=== PATIENT | female | born 1940 | race Caucasian/White ===

== ENCOUNTER 2017-04-17 13:01 | Observation (INO) | payer MEDICARE, OTHER ==
[~2017-04-17] VITALS: Ht 160 cm; Wt 88.5 kg
[2017-04-17] VITALS (12 sets, daily range): BP systolic 131–171; BP diastolic 57–82; PULSE 78–93; RESP 16–22; TEMP 98.2–100; O2SAT 94–98
[~2017-04-17 13:01] MED LIST: CELE200 PO; METO5TAB PO; NEXI40CA PO; OXYC30TA PO; SUCR1TAB PO; SYNT175T PO
[2017-04-17] MEDS ORDERED: OXYC30TA PO (13:12)
[2017-04-17] MEDS ORDERED: SYNT175T PO (13:12)
[2017-04-17] MEDS ORDERED: OMEP20TA PO (13:12)
[2017-04-17] MEDS ORDERED: ASPIRIN 81 MG CHEW TAB PO STA (13:34)
[2017-04-17] MEDS ORDERED: SODIUM CHLOR 0.9% 1000 ML INJ 1,000 ML IV ONE (13:34)
--- NOTE | 2017-04-17 13:41 | PD ---
HPI Chief Complaint: Chest Pain Time Seen by Provider: 13:11 Travel History International Travel<30 days: No Contact w/Intl Traveler<30days: No Traveled to known affect area: No History of Present Illness HPI The patient was seen and examined in the presence of the nurse. This patient complains of chest pain. Duration 12 hours. Feels like a sternal pressure in the center and low sternum. Severity is moderate. It's waxed and waned over the last 12 hours. She denies history of personal cardiac disease. She says she had a catheterization in [place] 3 years ago but required no intervention or stenting. PFSH Past Medical History Cancer: No Diabetes: Yes (DIET CONTROLLED) Patient Takes Glucophage: No Diminished Hearing: No Hepatitis: No Hiatal Hernia: Yes (GERD) Medical other: Yes (ARTHRITIS/ THYROID PROBLEMS) Musculoskeletal: Yes (BACK PAIN HX) Thyroid Disease: Yes Tetanus Vaccination: > 5 Years Influenza Vaccination: Yes ?: Not Menopausal: Yes Past Surgical History Abdominal Surgery: Yes (5 SX FOR HIATAL HERNIA; SPLEENECTOMY) Eye Surgery: Yes (LEFT CATARACT SX) Gynecologic Surgery: Yes (HYSTERECTOMY WITH BLADDER SUSPENSION ; REVISION BLADDER ) Hysterectomy: Yes Neurologic Surgery: Yes (1967 L4-5 LAMINECTOMY; 2007 LUMBAR LAMINECTOMT ) Pacemaker: No Other Surgery: Yes Social History Alcohol Use: Yes (OCASSIONALLY) Tobacco Use: No Substance Use: No (PT DENIES) Allergies-Medications (Allergen,Severity, Reaction): Coded Allergies: Penicillin (Unverified Allergy, Unknown, RASH, 04/17/17) Reported Meds & Prescriptions Reported Meds & Active Scripts Active Reported Oxycodone (Oxycodone HCl) 30 Mg Tab 30 Mg PO Q6H PRN Synthroid (Levothyroxine Sodium) 175 Mcg Tab 175 Mcg PO DAILY Omeprazole 20 Mg Tab 20 Mg PO DAILY Review of Systems General / Constitutional: No: Fever Eyes: No: Visual changes HENT: No: Headaches Cardiovascular: Positive: Chest Pain or Discomfort Respiratory: No: Shortness of Breath Gastrointestinal: No: Abdominal Pain Genitourinary: No: Dysuria Musculoskeletal: No: Pain Skin: No Rash Neurologic: No: Weakness Psychiatric: No: Depression Endocrine: No: Polydipsia Hematologic/Lymphatic: No: Easy Bruising Physical Exam Narrative GENERAL: Well-nourished, well-developed patient with chest pressure. SKIN: Focused skin assessment reveals no rash and nodules. Skin is Warm and dry. HEAD: Atraumatic. Normocephalic. EYES: Pupils equal and round. No scleral icterus. No injection or drainage. ENT: No nasal bleeding or discharge. Mucous membranes pink and moist. NECK: Trachea midline. No JVD. CARDIOVASCULAR: Regular rate and rhythm. No murmur appreciated. RESPIRATORY: No accessory muscle use. Clear to auscultation. Breath sounds equal bilaterally. GASTROINTESTINAL: Abdomen soft, non-tender, nondistended. Hepatic and splenic margins not palpable. MUSCULOSKELETAL: No obvious deformities. No clubbing. No cyanosis. No edema. NEUROLOGICAL: Awake and alert. No obvious cranial nerve deficits. Motor grossly within normal limits. Normal speech. PSYCHIATRIC: Appropriate mood and affect; insight and judgment normal. Data Data Last Documented VS Vital Signs Date Time Temp Pulse Resp B/P Pulse Ox O2 Delivery O2 Flow Rate FiO2 04/17/17 13:09 84 16 171/82 97 04/17/17 13:09 Room Air 04/17/17 13:02 98.2 Orders Electrocardiogram (04/17/17 ) Electrocardiogram (04/17/17 ) [facility] Medical Decision Making Medical Screen Exam Complete: Yes Emergency Medical Condition: Yes Medical Record Reviewed: Yes Differential Diagnosis Differential diagnosis includes [place], angina, pericarditis, pleurisy, GERD, anxiety. Narrative Course I have reviewed the patient's electronic medical record. Patient was here 2011 with hiatal hernia surgery. I reviewed an EKG tracing that does not show any ST changes but there are no EKGs to review This patient arrives with 12 hours of waxing and waning chest pressure. She is having active chest pressure right now. I reviewed her EKG which shows sinus rhythm and there are ST elevation of 1 mm in inferior leads most noticeable in lead 2. This is consistent with a acute STEMI I have called a STEMI alert and discussed with team foreman Dr. Aravind Rios. Patient is critically ill with acute STEMI. I ordered the protocol Gave her 4 baby aspirin and a dose of morphine and Zofran I reviewed her chest x-ray Extended cardiac monitoring reveals sinus rhythm without ectopy CBC Metabolic profile CK Troponin Coagulation studies Critical Care Narrative Aggregate critical care time was 34 minutes. Time to perform other separately billable procedures was not included in the critical care time. My time did not include minutes spent treating any other patients simultaneously or on activities that did not directly contribute to the patient's treatment. The services I provided to this patient were to treat and/or prevent clinically significant deterioration that could result in: Cardiopulmonary arrest, myocardial damage, cardiac arrhythmia I provided critical care services requiring my management, as noted below: Chart data review, documentation time, medication orders and management, vital sign assessments/reviewing monitor data, ordering and reviewing lab tests, ordering and interpreting/reviewing x-rays and diagnostic studies, care of the patient and discussion of the patient with the admitting physicians. Constantin Madison MD Apr 17, 2017 13:41
[2017-04-17] MEDS ORDERED: HEPARIN-D5W INJ 250 ML IV SCH (13:45)
[2017-04-17] MEDS ORDERED: MORPHINE SULFATE 4 MG/ML INJ IV PUSH ONE (13:45)
[2017-04-17] MEDS ORDERED: HEPARIN SODIUM - IV 10,000 UNITS/10 ML VIAL IV ONE (13:45)
[2017-04-17] MEDS ORDERED: SODIUM CHLORIDE 0.9% FLUSH 10 ML FLUSH IVF PRN (13:45)
[2017-04-17 13:46] LABS: I-STAT POTASSIUM 6.2 MMOL/L (3.5-4.9); I-STAT SODIUM 135 MMOL/L (138-146)
[2017-04-17 13:47] LABS: AUTOMATED NEUTROPHIL # 12.6 TH/MM3 (1.8-7.7); BASOPHIL # 0.2 TH/MM3 (0-0.2); BASOPHIL % 1.2 % (0.0-2.0); EOSINOPHIL # 0.3 TH/MM3 (0-0.4); EOSINOPHIL % 1.6 % (0.0-4.0); HEMO FLAGS DIFF FINAL; LYMPH % 22.9 % (9.0-44.0); LYMPHOCYTE # 4.3 TH/MM3 (1.0-4.8); MEAN CELL VOLUME 81.6 FL (80.0-100.0); MEAN CORPUSCULAR HEMOGLOBIN 26.1 PG (27.0-34.0); MEAN CORPUSCULAR HGB CONC 31.9 % (32.0-36.0); MONO % 7.8 % (0.0-8.0); NEUT % 66.5 % (16.0-70.0); PLATELET COUNT 364 TH/MM3 (150-450); RED BLOOD COUNT 4.78 MIL/MM3 (4.00-5.30); RED CELL DISTRIBUTION WIDTH 16.2 % (11.6-17.2); WHITE BLOOD COUNT 18.9 TH/MM3 (4.0-11.0)
[2017-04-17] MEDS ORDERED: METF500T PO (13:56)
[2017-04-17] MEDS ORDERED: NITROGLYCERIN-DEXTROSE INJ 250 ML ONE (13:57)
[2017-04-17 13:59] LABS: APTT (PATIENT) 29.1 SEC (24.3-30.1); PROTHROMBIN TIME - PATIENT 10.5 SEC (9.8-11.6)
--- NOTE | 2017-04-17 14:05 | RADRPT ---
EXAM DATE/TIME: 04/17/2017 13:50 [facility] COMPARISON: No previous studies available for comparison. INDICATIONS : Chest pain. MEDICAL HISTORY : None. SURGICAL HISTORY : None. ENCOUNTER: Initial ACUITY: 1 day PAIN SCORE: 10/10 LOCATION: Bilateral chest FINDINGS: A single view of the chest demonstrates the lungs to be symmetrically aerated without evidence of mas s, infiltrate or effusion. Minimal basal atelectasis. The cardiomediastinal contours are unremarkable . Osseous structures are intact. CONCLUSION: 1. Minimal basal atelectasis. Tortuous aorta. No effusion or pneumothorax. Terrell Garrett MD on April 17, 2017 at 14:02 Board Certified Radiologist. This report was verified electronically.
--- NOTE | 2017-04-17 14:08 | MH ---
cc: KADE MORRISON M.D. DATE OF ADMISSION: 04/17/2017 ADMITTING DIAGNOSIS: 1. Acute inferior S-T segment elevation myocardial infarction. 2. Type 2 diabetes. 3. Diabetes mellitus. CHIEF COMPLAINT: Chest pain since one o'clock in the morning. HISTORY OF PRESENT ILLNESS: This is a 76-year female with no prior cardiac history. She developed acute onset of severe substernal chest pain like a brick on her chest and radiating somewhat to her back. She has had diabetes for the past five years. Her son has heart disease. She has never smoked. There is no history of hypertension, hyperlipidemia. Her chest pain has been unrelenting. She finally came into the emergency room with EKG showing 1 mm S-T elevation inferiorly. A cardiac STEMI alert has been called. MEDICATIONS: Please see the medication reconciliation sheet. ALLERGIES: 1. PENICILLIN. PAST MEDICAL HISTORY: 1. Gastroesophageal reflux disease (GERD). 2. Type 2 diabetes. 3. Hypothyroidism. 4. Arthritis. 5. Chronic back pain. PAST SURGICAL HISTORY: 1. Cholecystectomy. 2. Appendectomy in 1962. 3. Two previous back operations. 4. Total hysterectomy. 5. Bladder repairs. 6. Previous vaginal fistula repair. 7. Bilateral total knee replacements. 8. Right carpal tunnel surgery. 9. Right tennis elbow surgery. 10. Right rotator cuff surgery. 11. Daniel fundoplication. 12. Multiple hernia repairs. 13. Multiple abdominal adhesion surgeries. 14. Surgeries for spinal stenosis. 15. Broken right arm and shoulder. REVIEW OF SYSTEMS: Denies any bleeding. The remaining review of systems is negative. PHYSICAL EXAMINATION: GENERAL: The physical exam reveals a morbidly obese white female alert and oriented and complaining of pain. VITAL SIGNS: Blood pressure is elevated. HEAD, EYES, EARS, NOSE, THROAT: Unremarkable. NECK: No bruits. CHEST: A few bibasilar crackles. CARDIAC: S1 and S2. Regular rate and rhythm with a 1/6 systolic ejection murmur. ABDOMEN: Soft. EXTREMITIES: No peripheral edema. Pulses are intact. EKGS: EKG shows sinus rhythm with 1 mm S-T segment elevation inferiorly. Remaining labs and chest x-ray are underway. IMPRESSION: Acute inferior STEMI. PLAN: 1. STEMI alert has been called. 2. The patient is receiving aspirin and heparin and morphine. 3. Emergency catheterization to follow. MD HILARY Silva/THAIS /1:48 PM /2:04 PM
[2017-04-17] MEDS ORDERED: HEPARIN-NS/PF INJ 500 ML ONE (14:13)
[2017-04-17 14:14] LABS: CREATINE KINASE 54 U/L (26-192); MAGNESIUM 1.8 MG/DL (1.5-2.5)
[2017-04-17] MEDS ORDERED: MIDAZOLAM HCL 5 MG/5 ML VIAL ONE (14:14)
[2017-04-17] MEDS ORDERED: MORPHINE SULFATE 8 MG/ML INJ ONE (14:32)
[2017-04-17] MEDS ORDERED: SODIUM CHLORIDE 0.9% FLUSH 10 ML FLUSH IV FLUSH PRN (15:00)
[2017-04-17] MEDS ORDERED: oxyCODONE/ACETAMINOPHEN 5 MG/325 MG TAB PO PRN ×2 (15:00)
[2017-04-17] MEDS ORDERED: BACITRACIN OINT 0.9 GM PKT TOP ONE (15:00)
[2017-04-17] MEDS ORDERED: ONDANSETRON HCL 4 MG/2 ML VIAL IV PRN (15:00)
[2017-04-17] MEDS ORDERED: SODIUM CHLOR 0.9% 1000 ML INJ 1,000 ML IV SCH ×2 (15:04→16:00)
[2017-04-17] MEDS ORDERED: MORPHINE SULFATE 4 MG/ML INJ IV PUSH PRN ×2 (15:15→20:00)
[2017-04-17] MEDS: SODIUM CHLOR 0.9% 1000 ML INJ 1,000 ML IV SCH ×3 (16:31→23:01)
--- NOTE | 2017-04-17 16:34 | PD.CONS ---
HPI Service [facility] Consult Requested By Dr. Aravind Rios Reason for Consult medical management , assume care Primary Care Physician Moises Lea MD Diagnoses: History of Present Illness Patient is a 76-year-old female with history of chronic pain, diabetes type 2 who experienced chest discomfort since 1 AM this morning. Patient states he that she had to sit up and did not sleep well last night because of this persistent pain. Patient denies any nausea vomiting.. Persistence prompted patient to coming here when on evaluation showed ST elevation in 23 aVF. Patient was promptly seen by cardiology and went to cardiac catheter - normal coronaries. Patient currently seen right now in the room complaining of anterior chest pain radiating to the back- . Patient is on heparin drip. Plan is to get a CTA to rule out PE On further questioning patient has been having persistent chest pain and at one point same problem for the past 2 years now and actually had a cardiac catheter done a year ago with normal coronaries. Had an EGD done a year ago which was normal. She had had many abdominal surgeries that it was explained to them that probably this was the one of the cause of this pain- scar tissues. and Patient has been also state that patient is stressed out having trouble with their sons and grandkids. Patient baseline is the active walks ambulates around independently and uses a long of walker for long walks like shopping. denies any bleeding tendencies denies any recent travel. Denies any fever or chills or cough. For this chronic pain patient sees a crayon painter. Takes Hydrocodone 30 mg po q 4 Review of Systems Constitutional: DENIES: Diaphoretic episodes, Fatigue, Fever, Weight gain, Weight loss, Chills, Dizziness, Change in appetite, Night Sweats Endocrine: DENIES: Abnorml menstrual pattern, Heat/cold intolerance, Polydipsia , Polyuria, Polyphagia Eyes: DENIES: Blurred vision, Diplopia, Eye inflammation, Eye pain, Vision loss , Photosensitivity, Double Vision Ears, nose, mouth, throat: DENIES: Tinnitus, Hearing loss, Vertigo, Nasal discharge, Oral lesions, Throat pain, Hoarseness, Ear Pain, Running Nose, Epistaxis, Sinus Pain, Toothache, Odynophagia Respiratory: DENIES: Apneas, Cough, Snoring, Wheezing, Hemoptysis, Sputum production, Shortness of breath Cardiovascular: COMPLAINS OF: Chest pain (on and off chest pain) Gastrointestinal: COMPLAINS OF: Abdominal pain (on and off abdominal pain with reflux sensation) Genitourinary: DENIES: Abnormal vaginal bleeding, Dysmenorrhea, Dyspareunia, Sexual dysfunction, Urinary frequency, Urinary incontinence, Urgency, Hematuria , Dysuria, Nocturia, Vaginal discharge Musculoskeletal: COMPLAINS OF: Joint pain Integumentary: DENIES: Abnormal pigmentation, Pruritus, Rash, Nail changes, Breast masses, Breast skin changes, Nipple discharge Hematologic/lymphatic: DENIES: Bruising, Lymphadenopathy Immunologic/allergic: DENIES: Eczema, Urticaria Neurologic: DENIES: Abnormal gait, Headache, Localized weakness, Paresthesias, Seizures, Speech Problems, Tremor, Poor Balance Psychiatric: COMPLAINS OF: Anxiety (problems with grandkids and sons), Depression Past Family Social History Allergies: Coded Allergies: Penicillin (Unverified Allergy, Unknown, RASH, 04/17/17) Past Medical History Diabetes type 2 chronic pain Reflux Hypothyroidism Past Surgical History Multiple surgeries Gallbladder and appendectomy 196 Back surgery L4-L5 1967 Hysterectomy 1969 bladder surgery 1969 with the other repairs in 7-1 cystoscopy with vaginal fistula repair in 71 surgery 1972 hysterectomy in 1970 for bilateral knee surgery 1987 Right carpal tunnel surgery Right tennis elbow surgery [place] [employer] right shoulder spur cough surgery hi abdominal hernia Fundoplication 96 bilateral knee replacement in hiatal hernia surgery gastric surgery in 2000 spinal stenosis 2007 gastric reconstruction 2011 Reported Medications Metformin 500 mg twice a day Oxycodone 30 mg every 6 Omeprazole 20 mg daily Synthroid 120 g daily Family History Noncontributory Social History Nonsmoker denies alcohol use Physical Exam Vital Signs Vital Signs Date Time Temp Pulse Resp B/P Pulse Ox O2 Delivery O2 Flow Rate FiO2 04/17/17 14:00 76 17 159/72 99 Nasal Cannula 2 04/17/17 13:51 78 18 161/72 96 Room Air 04/17/17 13:46 17 04/17/17 13:38 98 Room Air 04/17/17 13:38 18 98 Room Air 04/17/17 13:15 Nasal Cannula 2.00 04/17/17 13:15 2.00 04/17/17 13:09 84 16 171/82 97 04/17/17 13:09 79 18 98 Room Air 04/17/17 13:02 98.2 80 20 159/72 96 Room Air Physical Exam GENERAL: This is a well-nourished, well-developed patient, appears uncomfortable complaining of anterior chest pain BP right arm- 158/78 Left arm- 193/82 SKIN: No rashes, ecchymoses or lesions. Cool and dry. HEAD: Atraumatic. Normocephalic. No temporal or scalp tenderness. EYES: Pupils equal round and reactive. Extraocular motions intact. No scleral icterus. No injection or drainage. ENT: Nose without bleeding, purulent drainage or septal hematoma. Throat without erythema, tonsillar hypertrophy or exudate. Uvula midline. Airway patent. NECK: Trachea midline. No JVD or lymphadenopathy. Supple, nontender, no meningeal signs. CARDIOVASCULAR: Regular rate and rhythm without murmurs, gallops, or rubs. RESPIRATORY: Clear to auscultation. Breath sounds equal bilaterally. No wheezes , rales, or rhonchi. GASTROINTESTINAL: Abdomen soft, non-tender, nondistended. No hepato-splenomegaly , or palpable masses. No guarding. MUSCULOSKELETAL: Moves all extremities equally NEUROLOGICAL: Awake and alert. Cranial nerves II through XII intact. Motor and sensory grossly within normal limits. Five out of 5 muscle strength in all muscle groups. Normal speech. Laboratory Laboratory Tests Test 04/17/17 13:37 White Blood Count 18.9 Red Blood Count 4.78 Hemoglobin 12.5 Bedside Hemoglobin 14.3 Hematocrit 39.0 Bedside Hematocrit 42.0 Mean Corpuscular Volume 81.6 Mean Corpuscular Hemoglobin 26.1 Mean Corpuscular Hemoglobin 31.9 Concent Red Cell Distribution Width 16.2 Platelet Count 364 Mean Platelet Volume 9.4 Neutrophils (%) (Auto) 66.5 Lymphocytes (%) (Auto) 22.9 Monocytes (%) (Auto) 7.8 Eosinophils (%) (Auto) 1.6 Basophils (%) (Auto) 1.2 Neutrophils # (Auto) 12.6 Lymphocytes # (Auto) 4.3 Monocytes # (Auto) 1.5 Eosinophils # (Auto) 0.3 Basophils # (Auto) 0.2 CBC Comment DIFF FINAL Differential Comment Prothrombin Time 10.5 Prothromb Time International 1.0 Ratio Activated Partial 29.1 Thromboplast Time Bedside Sodium 135 Bedside Potassium 6.2 Bedside Chloride 100 Bedside Blood Urea Nitrogen 43 Bedside Creatinine 1.0 Bedside Glucose 139 Calcium Level 8.8 Magnesium Level 1.8 Total Creatine Kinase 54 Troponin I LESS THAN 0.02 B-Type Natriuretic Peptide 64 Result Diagram: 04/17/17 1337 Imaging Last 72 hours Impressions Chest X-Ray 04/17/17 1334 Signed Impressions: Service Date/Time: Monday, April 17, 2017 13:50 - CONCLUSION: 1. Minimal basal atelectasis. Tortuous aorta. No effusion or pneumothorax. Terrell Garrett MD Assessment and Plan Assessment and Plan 76-year-old female presenting with Acute chest pain with elevations ST in 2, 3 aVF normal coronaries on cardiac catheterization - r/o other etiologies history of chronic chest pain With severe ongoing chest pain and penetrating to the back will do a CT aortogram to rule out dissection. IV morphine when necessary for pain - CTA of the chest to rule out PE- D/w radiology - maybe possible to do both check a d-dimer now. Lovenox for now till PE totally ruled out Check ESR CRP rule out pericarditis. May need to rule out GI causes like esophageal stricture with multiple GI problems- consider EGD- Per though had 2EGDs done reportedly normal start patient on home regimen- Oxycodone 30 mg q 4 prn IV dilaudid for pain will try to get old EKGs from PCP office in am History of diabetes type 2 on metformin will hold metformin secondary to contrast studies Check hemoglobin A1c Follow blood sugars twice a day Leukocytosis- this looks chronic on review of old admission. ? CLL no fever, signs of infection. ff CBC check UA, CXR HYperkalemia- recheck labs now. IVF Acute pre renal insufficiency- start IVF. FF BMP with recent contrast studies will hold her Metformin Hisotry of hypothyroidism on synthroid- continue if aortogram negative for dissection- start heparin prophylactic dose SQ dose If CTA + for PE - start full anticoagulation Transfer to [facility] service Discussed Condition With patient Ariadne Hooper MD Apr 17, 2017 16:34
[2017-04-17] MEDS ORDERED: IOHEXOL 350 MG/ML 10 ML VIAL (for RAD DIAG) IV ONE (16:45)
--- NOTE | 2017-04-17 17:27 | RADRPT ---
EXAM DATE/TIME: 04/17/2017 16:22 [facility] COMPARISON: No previous studies available for comparison. INDICATIONS : Evaluate for dissection or PE post heart cath. IV CONTRAST: 70 cc Omnipaque 350 (iohexol) IV RADIATION DOSE: 16.96 CTDIvol (mGy) MEDICAL HISTORY : Gastroesophageal reflux disease. SURGICAL HISTORY : Hysterectomy. Splenectomy.bladder lift, laminectomy L45 ENCOUNTER: Initial ACUITY: 1 day PAIN SCALE: 0/10 LOCATION: Bilateral chest TECHNIQUE: Volumetric scanning was performed using a multi-row detector CT scanner. The data was post processed with a variety of visualization algorithms including full volume maximum intensity projection, multi -planar sliding thin slab reformation, curved planar reformation, and surface rendering techniques. Using automated exposure control and adjustment of the mA and/or kV according to patient size, radiat ion dose was kept as low as reasonably achievable to obtain optimal diagnostic quality images. DICOM format image data is available electronically for review and comparison. FINDINGS: There is no or aortic dissection or aneurysm involving the thoracic or abdominal aorta. There is subsegmental atelectasis scattered in both lungs. No dense consolidation or air bronchograms . There is no pleural or pericardial effusion. Mild cardiomegaly. No pneumothorax. There is intrahepatic and extra hepatic biliary ductal dilatation with common bile duct measuring ove r 2 cm in diameter. Gallbladder not visualized. There is at least a moderate stenosis of the proximal right renal artery. Densely calcified plaque pr oximal left renal artery. Mild narrowing proximal celiac artery. Superior mesenteric artery patent. No acute findings in the adrenals, kidneys or pancreas. No free fluid. No bowel obstruction. Mild con stipation. Degenerative disc disease in the spine status post laminectomy in the lower lumbar spine. CONCLUSION: 1. Negative for thoracic or abdominal aortic aneurysm or dissection. 2. Negative for pulmonary embolus. 3. There is at least a moderate stenosis proximal right renal artery and densely calcified plaque pro ximal left renal artery. 4. There is intrahepatic and extra hepatic biliary ductal dilatation with common bile duct over 2 cm in diameter. Terrell Garrett MD on April 17, 2017 at 17:13 Board Certified Radiologist. This report was verified electronically.
[2017-04-17 17:57] LABS: AUTOMATED NEUTROPHIL # 14.1 TH/MM3 (1.8-7.7); BASOPHIL # 0.2 TH/MM3 (0-0.2); BASOPHIL % 1.2 % (0.0-2.0); EOSINOPHIL # 0.2 TH/MM3 (0-0.4); HEMATOCRIT 38.4 % (35.0-46.0); HEMO FLAGS DIFF FINAL; MEAN CELL VOLUME 82.6 FL (80.0-100.0); MEAN CORPUSCULAR HEMOGLOBIN 25.3 PG (27.0-34.0); MEAN CORPUSCULAR HGB CONC 30.6 % (32.0-36.0); MONO % 7.3 % (0.0-8.0); NEUT % 70.5 % (16.0-70.0); PLATELET COUNT 333 TH/MM3 (150-450); RED BLOOD COUNT 4.65 MIL/MM3 (4.00-5.30); RED CELL DISTRIBUTION WIDTH 15.8 % (11.6-17.2)
[2017-04-17 18:37] LABS: ANION GAP 7 MEQ/L (5-15); BICARBONATE 28.8 MEQ/L (21.0-32.0); BLOOD UREA NITROGEN 25 MG/DL (7-18); CHLORIDE 98 MEQ/L (98-107); GLOMERULAR FILTRATION RATE 59 ML/MIN (>89); POTASSIUM 4.3 MEQ/L (3.5-5.1); SODIUM (NA) 134 MEQ/L (136-145)
[2017-04-17 18:38] LABS: ALT (GPT) 48 U/L (10-53); AST (GOT) 56 U/L (15-37)
[2017-04-17 18:47] LABS: ALKALINE PHOSPHATASE 274 U/L (45-117); TOTAL BILIRUBIN ADULT 0.6 MG/DL (0.2-1.0)
--- NOTE | 2017-04-17 19:06 | MA ---
cc: KADE MORRISON M.D. DATE: 04/17/2017. PROCEDURES PERFORMED: 1. Left heart catheterization. 2. Left ventriculography. 3. Coronary angiography. 4. Right femoral angiography with Angio-Seal placement. BRIEF HISTORY: Haylie Flores is a 76-year-old diabetic who has been having substernal chest pain like a brick on her chest since one o'clock in the morning. EKG shows 1 mm of S-T segment elevation inferiorly without reciprocal changes. 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 The right groin was prepped and draped in sterile fashion. Fluoroscopy was used up localize proper sheath insertion after she prepped and draped sterile fashion. I used 1% lidocaine and entered the right femoral artery on the first stick and placed a 6.5-Hebrew sheath. Coronary angiography was then completed next using a 3DRC for the right coronary artery and a left 4 Anna for the left coronary artery. Left ventricular pressure was then recorded using a pigtail catheter followed by left ventriculography and then a pullback. There was nothing found to cause her chest pain. Angiography of the right femoral artery via the sheath was then performed followed by uncomplicated Angio-Seal closure. There were no complications. Total contrast load was 130 mL. FINDINGS: 1. Hemodynamics: Left ventricular pressure was 167/11 with an end diastolic pressure of 20. The aortic pressure was 179/68 with a mean of 116. There was no gradient during pullback from the left ventricle to the aorta. 2. Left ventriculography. Left ventriculography shows normal left ventricular function with an estimated ejection fraction of 60%. 3. Coronary angiography. The left main coronary artery appears normal. It bifurcates into the left anterior descending and left circumflex arteries. The left anterior descending artery has some trivial irregularity at its mid-segment and essentially appears normal. The distal left anterior descending is somewhat tortuous. The circumflex artery is off the tortuous obtuse marginal branch but appears normal. The right coronary artery is smooth and normal-appearing. CONCLUSIONS: 1. Mildly elevated left ventricular end diastolic pressure. 2. Normal left ventricular systolic function. 3. Normal coronary arteries. RECOMMENDATIONS: The source of her chest pain is unclear. She has no calf tenderness. She is not hypoxic. There is no apparent dissection of the aorta seen on the left ventriculogram. There is no epigastric tenderness. She has had a previous cholecystectomy. She has a previous fundoplication and so it is possible it could be GI in origin. Pulmonary embolism needs to be excluded. Will continue IV heparin until that has taken place. MD HILARY Silva/THAIS /2:57 PM /7:01 PM
[2017-04-17] MEDS ORDERED: HEPARIN SODIUM - IV 10,000 UNITS/10 ML VIAL IV PRN ×2 (19:45)
[2017-04-17] MEDS: SODIUM CHLORIDE 0.9% FLUSH 10 ML FLUSH IV FLUSH SCH (22:03)
[2017-04-17] MEDS: HEPARIN SODIUM - SQ 10,000 UNITS/ML VIAL SQ SCH (22:03)
[2017-04-17 22:21] LABS: BACTERIA, URINE FEW /hpf; BLOOD, URINE NEG (NEG); COMMENT (UR) CULTURE INDICATED; CULTURE IF INDICATED CULTURE INDICATED; GLUCOSE,URINE NEG (NEG); KETONE, URINE NEG (NEG); NITRITE,URINE NEG (NEG); SQUAMOUS EPITHELIAL CELL URINE 1 /hpf (0-5); URINE COLOR YELLOW (YELLW/STRAW)
[2017-04-17 22:24] LABS: AMPHETAMINE, URINE NEG (NEG); BARBITURATES, URINE NEG (NEG); COCAINE, URINE NEG (NEG)
[2017-04-18] VITALS (17 sets, daily range): BP systolic 98–155; BP diastolic 47–71; PULSE 76–90; RESP 16–20; TEMP 97.4–100.1; O2SAT 89–97
[2017-04-18] MEDS ORDERED: LEVOFLOXACIN 750 MG PREMIX INJ 150 ML IV SCH (03:30)
[2017-04-18 05:52] LABS: AUTOMATED NEUTROPHIL # 10.4 TH/MM3 (1.8-7.7); BASOPHIL # 0.1 TH/MM3 (0-0.2); BASOPHIL % 0.8 % (0.0-2.0); EOSINOPHIL # 0.1 TH/MM3 (0-0.4); EOSINOPHIL % 0.6 % (0.0-4.0); HEMATOCRIT 34.3 % (35.0-46.0); HEMO FLAGS DIFF FINAL; LYMPH % 24.2 % (9.0-44.0); LYMPHOCYTE # 3.9 TH/MM3 (1.0-4.8); MEAN CELL VOLUME 82.1 FL (80.0-100.0); MEAN CORPUSCULAR HEMOGLOBIN 25.6 PG (27.0-34.0); MEAN CORPUSCULAR HGB CONC 31.2 % (32.0-36.0); MONO % 9.4 % (0.0-8.0); PLATELET COUNT 281 TH/MM3 (150-450); RED BLOOD COUNT 4.17 MIL/MM3 (4.00-5.30); RED CELL DISTRIBUTION WIDTH 15.9 % (11.6-17.2)
[2017-04-18] MEDS ORDERED: PANTOPRAZOLE SOD 40 MG DELAYED RELEASE TAB PO SCH (06:00)
[2017-04-18] MEDS ORDERED: LEVOTHYROXINE SODIUM 125 MCG TAB PO SCH (06:00)
[2017-04-18] MEDS ORDERED: LEVOTHYROXINE SODIUM 50 MCG TAB PO SCH (06:00)
[2017-04-18 06:22] LABS: BICARBONATE 26.8 MEQ/L (21.0-32.0); POTASSIUM 4.2 MEQ/L (3.5-5.1)
[2017-04-18] MEDS: SODIUM CHLORIDE 0.9% FLUSH 10 ML FLUSH IV FLUSH SCH (08:21)
[2017-04-18] MEDS: HEPARIN SODIUM - SQ 10,000 UNITS/ML VIAL SQ SCH (08:23)
[2017-04-18] MEDS: SODIUM CHLOR 0.9% 1000 ML INJ 1,000 ML IV SCH (11:13)
--- NOTE | 2017-04-18 11:27 | HHI.PR ---
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- in the past was also tried on neurontin- did not work Objective Vitals Vital Signs Date Time Temp Pulse Resp B/P Pulse Ox O2 Delivery O2 Flow Rate FiO2 04/18/17 08:11 97.4 78 20 98/47 97 04/18/17 07:00 81 04/18/17 06:00 76 04/18/17 05:00 80 04/18/17 04:00 79 04/18/17 03:15 93 04/18/17 03:00 100.1 88 16 155/71 89 04/18/17 03:00 86 04/18/17 02:00 90 04/18/17 01:00 84 04/18/17 00:02 80 04/17/17 23:00 96 Room Air 04/17/17 23:00 82 04/17/17 23:00 98.6 83 16 131/70 96 04/17/17 22:00 84 04/17/17 21:00 84 04/17/17 20:00 88 04/17/17 19:30 100.0 93 16 141/66 96 04/17/17 19:30 96 Nasal Cannula 1.00 04/17/17 19:00 93 04/17/17 17:40 98.2 88 22 142/57 94 04/17/17 14:00 76 17 159/72 99 Nasal Cannula 2 04/17/17 13:51 78 18 161/72 96 Room Air 04/17/17 13:46 17 04/17/17 13:38 98 Room Air 04/17/17 13:38 18 98 Room Air 04/17/17 13:15 Nasal Cannula 2.00 04/17/17 13:15 2.00 04/17/17 13:09 84 16 171/82 97 04/17/17 13:09 79 18 98 Room Air 04/17/17 13:02 98.2 80 20 159/72 96 Room Air I/O 04/17/17 04/17/17 04/17/17 04/18/17 04/18/17 04/18/17 07:00 15:00 23:00 07:00 15:00 23:00 Intake Total 1590 ml Output Total 800 ml Balance 790 ml Intake Oral 350 ml IV Total 1240 ml Output Urine Total 800 ml # Voids 2 # Bowel Movements 0 Result Diagram: 04/18/17 0511 04/18/17 0511 Imaging Last Impressions Chest X-Ray 04/17/17 1334 Signed Impressions: Service Date/Time: Monday, April 17, 2017 13:50 - CONCLUSION: 1. Minimal basal atelectasis. Tortuous aorta. No effusion or pneumothorax. Terrell Garrett MD Aorta CTA 04/17/17 0000 Signed Impressions: Service Date/Time: Monday, April 17, 2017 16:22 - CONCLUSION: 1. Negative for thoracic or abdominal aortic aneurysm or dissection. 2. Negative for pulmonary embolus. 3. There is at least a moderate stenosis proximal right renal artery and densely calcified plaque proximal left renal artery. 4. There is intrahepatic and extra hepatic biliary ductal dilatation with common bile duct over 2 cm in diameter. Terrell Garrett MD Objective Remarks awake and alert, NAD anicteric lungs clear regular rhythm abdomen soft, nontender extremities no edema neuro exam- normal Procedures cardiac cath A/P Assessment and Plan 76-year-old female presenting with Acute chest pain with elevations ST in 2, 3 aVF normal coronaries on cardiac catheterization - r/o other etiologies history of chronic chest pain CTA negative for PE and aortic dissectionCT aortogram to rule out dissection. IV morphine when necessary for pain - History of diabetes type 2 on metformin will hold metformin secondary to contrast studies Follow blood sugars twice a day Leukocytosis- this looks chronic on review of old admission. OP ff up UTI- started on Levaquin HYperkalemia- resolved Acute pre renal insufficiency- start IVF. 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
[2017-04-18] MEDS ORDERED: LEVA500T20 PO (11:33)
[2017-04-18] MEDS ORDERED: IOHEXOL 350 MG/ML 100 ML BTL (for Cath Lab) OTHER ONE (14:08)
[2017-04-18] MEDS ORDERED: IOHEXOL 350 MG/ML 50 ML BTL (for Cath Lab) OTHER ONE (14:08)
--- NOTE | 2017-04-18 14:13 | EKG ---
Date Performed: 04/17/2017 Time Performed: 13:19:07 PTAGE: 76 years EKG: Sinus rhythm WITH FIRST DEGREE AV BLOCK LOW QRS VOLTAGE IN PRECORDIAL LEADS ST ELEVATION, CONSIDER INFERIOR INJUR Y ACUTE UT NO PREVIOUS TRACING DOCTOR: Marcus Joshi Interpretating Date/Time 04/18/2017 14:11:29
[2017-04-18 22:04] LABS: HEMOGLOBIN A1a 2.3 %; HEMOGLOBIN A1b 2.2 %; HEMOGLOBIN Ao 81.5 %; HEMOGLOBIN LA1C 2.2 %; HEMOGLOBIN P3 4.5 %
== END 2017-04-18 14:09 | disposition home or self-care (01) ==
LOC: NEPC 13:01 → NEDA 13:49 → INTOOBSV 13:49 → HCIN 15:01 → UNDODISIN 04-18 14:09
PROVIDERS: ADMIT Internal Medicine; ATTEND Internal Medicine
DX: I21.19 ST elevation (STEMI) myocardial infarction involving other coronary artery of inferior wall (principal); I44.0 Atrioventricular block, first degree; Q25.46 Tortuous aortic arch; K83.8 Other specified diseases of biliary tract; I70.1 Atherosclerosis of renal artery; N39.0 Urinary tract infection, site not specified; E87.5 Hyperkalemia; E11.9 Type 2 diabetes mellitus without complications; E03.9 Hypothyroidism, unspecified; K21.9 Gastro-esophageal reflux disease without esophagitis; M54.9 Dorsalgia, unspecified; G89.29 Other chronic pain; M19.90 Unspecified osteoarthritis, unspecified site; Z79.899 Other long term (current) drug therapy; Z79.84 Long term (current) use of oral hypoglycemic drugs; N28.9 Disorder of kidney and ureter, unspecified; Z16.20 Resistance to unspecified antibiotic
CPT/HCPCS: 71010; 71275; 74174; 80048; 80053; 80307; 81001; 82310; 82435; 82550; 82565; 82947; 82948; 83036; 83690; 83735; 83880; 84132; 84295; 84443; 84484; 84520; 85025; 85379; 85610; 85652; 85730; 86140; 87077; 87086; 87186; 93005; 93458; 96374; 96375; 99291; C1760; C1769; C1893; G0269; G0378; J1644; J1956; J2250; J2270; J2405; J3010; J7030; Q9967